=== PATIENT | female | born 1950 | race Caucasian/White ===

== ENCOUNTER → 2016-08-27 | Outpatient (CLI) | payer OTHER ==
--- NOTE | 2016-09-04 16:19 | SS ---
ADMIT: 08/27/2016 RM/LOC: [facility] MR#: [id number] [address] [id number] [address] [place] [address] Sleep Study SEX: F AGE: 65 : 1950 STUDY DATE: 08/27/2016 REFERRING PHYSICIAN: Louis Camargo MD CLINICAL HISTORY: This is a 65-year-old female, body mass 43.2, 66 inches tall, 268 pounds, with known history of obstructive sleep apnea, in the sleep lab for CPAP titration. TECHNICAL DESCRIPTION: CPAP titration performed on night of 08/27/2016 attended by trained cytology technologist.4 TITRATION FINDINGS: TITRATION DESCRIPTION: The patient was titrated from 5 cm of CPAP to 8 cm of CPAP. An AirFit F20 medium mask was used as interface. SLEEP: Total time bed is 406.5 minutes, total sleep time 279.5 minutes, sleep efficiency reduced 68.8%. 51.3% hours spent in stage II sleep, 11.2% of time was spent in stage REM. BREATHING: Excellent resolution of obstructive sleep apnea was seen on CPAP 7 cm. The patient was seen in REM sleep in supine position with complete resolution of obstructive events. OXYGEN SATURATION: Mean sleeping oxygen saturation is 93%. CARDIAC: Average heart rate 72 beats per minute. MOVEMENTS/POSITION: During the study, patient slept in the supine lateral position. Periodic leg movement index of 16.5. IMPRESSION AND PLAN: Recommend using CPAP at 7 cm with mask as mentioned above. Recommend losing weight, avoiding sedatives or alcohol. Refrain from driving if excessively sleepy, recommend avoiding sleeping in supine position. Clinical correlation needed. CPAP compliance followup is recommended. Roberto Carlos Cerna MD/ logan JOB #: [id number] CC: Roberto Carlos Cerna MD, Attending Physician Alem Ontiveros MD, Family Physician
== END | disposition home or self-care (01) ==
LOC: RESC 20:14
DX: G47.33 Obstructive sleep apnea (adult) (pediatric) (principal)